=== PATIENT | male | born 1965 | race Caucasian/White ===

== ENCOUNTER 2016-08-10 04:01 | Emergency (ER) | payer OTHER ==
[~2016-08-10] VITALS: Ht 182.9 cm; Wt 108.9 kg
[~2016-08-10 04:01] MED LIST: CALCIUM + D 6001 TAB PO; CIPRO 500MG (E500 MG PO; DEPO-TESTADIOL10 ML IM; DEXILANT60 MG PO; DIAZEPAM5 MG PO; DICYCLOMINE HYD20 MG PO; NEXIUM 40MG40 MG PO; PERCOCET 325 MG1 TA2 PO; PERCOCET 325 MG1 TAB PO; VALIUM5 M1 PO; ZOFRAN4 M1 SL
--- NOTE | 2016-08-10 04:08 | ED UPPER/LOWER EXTREMITY COMPL ---
History of Present Illness General Chief Complaint: Hand or Wrist Injury Stated Complaint: LT HAND INJ WHILE AT WORK Source: patient Exam Limitations: no limitations Vital Signs & Intake/Output Vital Signs & Intake/Output Vital Signs Date Time Temp Pulse Resp B/P Pulse O2 O2 Flow FiO2 Ox Delivery Rate 08/10 0411 96.9 83 18 143/88 96 Allergies Coded Allergies: iodine (Severe, ANAPHYLAXIS 11/03/15) shellfish derived (Severe, ANAPHYLAXIS 11/03/15) Iodinated Contrast Media - Oral and (IODINATED CONTRAST MEDIA - IV DYE) (UNKNOWN 11/03/15) Sulfa (Sulfonamide Antibiotics) (UNKNOWN 11/03/15) Reconcile Medications Calcium/Vitamin D (Calcium + D) (Unknown Strength) TAB (Unknown Dose) PO DAILY SUPPLEMENT (Reported) Ciprofloxacin (Cipro) 500 MG TAB 1 TAB PO BID UTI Dexlansoprazole (Dexilant) 60 MG ECC 1 CAP PO DAILY GI (Reported) Diazepam 5 MG TAB 1 TAB PO PRN MUSCLE SPASMS (Reported) DICYCLOMINE HCL (Dicyclomine Hydrochloride) 20 MG TAB 1 TAB PO BID PRN GI ( Reported) Ondansetron (Zofran Odt) 4 MG ODT 1 TAB SL Q4-6 PRN NAUSEA OXYCODONE HCL/ACETAMINOPHEN (Percocet 10-325 MG Tablet) 325 MG/10 MG TAB 1 TAB PO Q4H PRN PAIN (Reported) OXYCODONE HCL/ACETAMINOPHEN (Percocet 5-325 MG Tablet) 325 MG/5 MG TAB 1-2 TAB PO Q4-6 PRN PRN PAIN Testosterone (Depo-Testadiol Inj 2 MG/Ml-50 MG/Ml) 10 ML MICHELLE 1 ML IM Q2W HRT (Reported) Triage Nurses Notes Reviewed? yes Onset: Abrupt Duration: hour(s): Timing: single episode today Severity: mild, moderate Pain/Injury Location: Left: 1st finger. Method of Injury: direct blow Modifying Factors: Improves With: rest. Worsens With: movement. Associated Symptoms: left thumb pain HPI: 51-year-old gentleman presents with left thumb pain. He states that she was at work yesterday and his left hand was crushed between a box and the wall. He thought he was okay, but when he woke up this morning he had severe left thumb pain. He states that it is worse when he moves his thumb. He denies other injury and is otherwise well. Past History Medical History Any Pertinent Medical History? see below for history Renal: KIDNEY STONES History of MRSA: No History of VRE: No History of CDIFF: No Surgical History Surgical History: GASTRIC BYPASS Psychosocial History Who do you live with Spouse Services at Home None What is your primary language Amharic Family History Hx Contributory? No Review of Systems Review of Systems Constitutional: Reports: no symptoms. EENTM: Reports: no symptoms. Respiratory: Reports: no symptoms. Cardiovascular: Reports: no symptoms. Gastrointestinal/Abdominal: Reports: no symptoms. Genitourinary: Reports: no symptoms. Musculoskeletal: Reports: no symptoms. Skin: Reports: no symptoms. Neurological/Psychological: Reports: no symptoms. Hematologic/Endocrine: Reports: no symptoms. Immunological: Reports: no symptoms. All Other Systems: Reviewed and Negative Physical Exam Physical Exam General Appearance: well developed/nourished, mild distress Head: atraumatic Eyes: Bilateral: normal appearance. Ears, Nose, Throat: normal pharynx, normal ENT inspection, hearing grossly normal Neck: normal inspection, supple Cardiovascular/Respiratory: regular rate/rhythm Back: normal inspection Hand Left: pain with palmar abduction with the left thumb. No focal bony tenderness. No deformity. Strength and light touch is intact. Skin: intact, normal color, warm/dry Lymphatic: no anterior cervical daria Progress Differential Diagnosis: contusion, fracture, sprain, tendon injury Plan of Care: Orders Procedure Date/time Status Durable Medical Equipment 08/10 531 Active Diagnostic Imaging: Viewed by Me: Radiology Read. Discussed w/RAD: Radiology Read. Radiology Impression: left fingers-no fracture Comments: PATIENT: CLIFFORD SAGASTUME PRESENT AGE: 51 PATIENT ACCOUNT NO: [id number] : [birth year] LOCATION: [facility] ORDERING PHYSICIAN: GEETHA MYRICK MD SERVICE DATE: 08/10/16 EXAM TYPE: RAD - XRY-FINGERS, LEFT EXAMINATION: XR FINGER, LEFT CLINICAL INFORMATION: Left thumb injury, question fracture COMPARISON: None TECHNIQUE: Three views of the left thumb. FINDINGS: Osseous alignment is anatomic. No acute fracture is seen. No radiopaque foreign body is seen. IMPRESSION: No acute findings identified. DICTATED BY: CHARMAINE PAYNE MD DATE/TIME DICTATED:08/10/16513 INFRASTRUCTURE ANALYST:HILDA DATE/TIME TRANSCRIBED:08/10/16513 CONFIDENTIAL, DO NOT COPY WITHOUT APPROPRIATE AUTHORIZATION. <Electronically signed in Other Vendor System> SIGNED BY: CHARMAINE PAYNE MD 08/10/16519 Departure Departure Disposition: HOME OR SELF CARE Condition: Stable Clinical Impression Primary Impression: Left thumb sprain Referrals: MELANIE MARADIAGA,DAVIE Escobar (PCP/Family) Departure Forms: Customer Survey General Discharge Information Comments XRAY NEGATIVE.... LEFT THUMB SPICA SPLINT PLACED BY . ... PT WILL FOLLOW UP WITH [facility].
--- NOTE | 2016-08-10 05:20 | RADIOLOGY REPORT ---
EXAMINATION: XR FINGER, LEFT CLINICAL INFORMATION: Left thumb injury, question fracture COMPARISON: None TECHNIQUE: Three views of the left thumb. FINDINGS: Osseous alignment is anatomic. No acute fracture is seen. No radiopaque foreign body is seen. IMPRESSION: No acute findings identified.
[2016-08-10 05:36] VITALS: BP 135/69
== END 2016-08-10 05:37 ==
LOC: ERH 04:01
DX: S63.602A Unspecified sprain of left thumb, initial encounter (principal); W23.0XXA Caught, crushed, jammed, or pinched between moving objects, initial encounter
CPT/HCPCS: 73140-LT